=== PATIENT | female | born 1975 | race Caucasian/White ===

== ENCOUNTER 2022-04-18 20:01 | Outpatient (CLI) | payer OTHER, SELFPAY ==
[2022-04-18 22:01] LABS: Chloride* 107 mmol/L (96-114); Sodium* 137 mmol/L (135-149)
[2022-04-18 22:04] LABS: Blood Urea Nitrogen* 15 mg/dL (5-24); Carbon Dioxide* 23 mmol/L (20-32); Creatinine* 0.8 mg/dL (0.5-1.5); Estimated Glomerular Filt Rate 91 ml/min; Glucose* 110 mg/dL (60-115)
[2022-04-18 22:05] LABS: Calcium* 9.6 mg/dL (8.4-10.6)
== END 2022-04-18 20:02 | disposition home or self-care (01) ==
LOC: NFLDREF 20:02
PROVIDERS: PCP Family Medicine; Visit Provider Student in an Organized Health Care Education/Training Program
DX: R42 Dizziness and giddiness (principal)
CPT/HCPCS: 80048

== ENCOUNTER 2023-02-01 13:53 | Outpatient (CLI) | payer OTHER, SELFPAY | END 2023-02-01 13:54 | disposition home or self-care (01) | PROVIDERS: PCP Family Medicine; Visit Provider Family Medicine | DX: Z00.00 Encounter for general adult medical examination without abnormal findings (principal); E78.5 Hyperlipidemia, unspecified; I10 Essential (primary) hypertension; N91.2 Amenorrhea, unspecified; E13.9 Other specified diabetes mellitus without complications | CPT/HCPCS: 80061; 83001 ==

== ENCOUNTER 2023-03-15 13:32 | Outpatient (CLI) | payer OTHER, SELFPAY ==
--- NOTE | 2023-03-15 14:00 | CRLHL7_ITS ---
For Patients: As a result of the Cures Act, medical imaging exams and procedure reports are released immediately into your electronic medical record. You may view this report before your referring provider. If you have questions, please contact your health care provider. BILATERAL SCREENING MAMMOGRAM WITH COMPUTER-AIDED DETECTION AND TOMOSYNTHESIS TECHNIQUE: CC and MLO views were obtained. These mammographic images have been obtained using full-field digital technique. These mammographic images were interpreted with the benefit of computer-aided detection. Breast Tomosynthesis was used in this interpretation. COMPARISON FILM: 11/03/21, 05/07/21, 02/07/18. FINDINGS: There are scattered areas of fibroglandular density IMPRESSION: There is no radiographic evidence for malignancy. ASSESSMENT: BI-RADS Category 1: Negative RECOMMENDATION: Routine screening mammogram in 1 year. A lay language report of this examination will be provided to the patient. Gustavo Presley M.D. Diagnostic Radiologist [email or web address] Transcribed: 1:04 [email or web address] chu/Dictated by: Gustavo Presley MD @ 03/16/2023 12:42:00 PM (Electronically Signed)
== END 2023-03-15 13:33 | disposition home or self-care (01) ==
LOC: MAMMO 13:32
PROVIDERS: PCP Family Medicine; Visit Provider Family Medicine
DX: Z12.31 Encounter for screening mammogram for malignant neoplasm of breast (principal)
CPT/HCPCS: 77063; 77067

== ENCOUNTER 2023-11-01 09:31 | Outpatient (CLI) | payer OTHER, SELFPAY | END 2023-11-01 09:32 | disposition home or self-care (01) | PROVIDERS: PCP Family Medicine; Visit Provider Family Medicine | DX: E11.9 Type 2 diabetes mellitus without complications (principal); I10 Essential (primary) hypertension; E78.5 Hyperlipidemia, unspecified; Z13.29 Encounter for screening for other suspected endocrine disorder | CPT/HCPCS: 80048; 80061; 84443 ==

== ENCOUNTER 2024-02-02 12:56 | Outpatient (CLI) | payer OTHER, SELFPAY | END 2024-02-02 12:57 | disposition home or self-care (01) | LOC: NFLDREF 02-06 23:10 | PROVIDERS: PCP Family Medicine; Referring Provider Family Medicine; Visit Provider Family Medicine | DX: N30.00 Acute cystitis without hematuria (principal); B95.7 Other staphylococcus as the cause of diseases classified elsewhere | CPT/HCPCS: 87086; 87186 ==

== ENCOUNTER 2024-08-14 09:58 | Outpatient (CLI) | payer OTHER, SELFPAY ==
--- NOTE | 2024-08-14 10:15 | CRLHL7_ITS ---
For Patients: As a result of the Century Cures Act, medical imaging exams and procedure reports are released immediately into your electronic medical record. You may view this report before your referring provider. If you have questions, please contact your health care provider. BILATERAL SCREENING MAMMOGRAM WITH COMPUTER-AIDED DETECTION AND TOMOSYNTHESIS TECHNIQUE: CC and MLO views were obtained. These mammographic images have been obtained using full-field digital technique. These mammographic images were interpreted with the benefit of computer-aided detection. Breast Tomosynthesis was used in this interpretation. COMPARISON FILM: 03/15/23, 11/03/21, 07/08/20. FINDINGS: There are scattered areas of fibroglandular density. IMPRESSION: There is no radiographic evidence for malignancy. ASSESSMENT: BI-RADS Category 1: Negative RECOMMENDATION: Routine screening mammogram in 1 year. A lay language report of this examination will be provided to the patient. Gustavo Presley M.D. Diagnostic Radiologist [email or web address] SP/Dictated by: Gustavo Presley MD @ 08/20/2024 11:30:00 AM (Electronically Signed)
== END 2024-08-14 09:59 | disposition home or self-care (01) ==
LOC: MAMMO 09:59
PROVIDERS: PCP Family Medicine; Visit Provider Family Medicine
DX: Z12.31 Encounter for screening mammogram for malignant neoplasm of breast (principal)
CPT/HCPCS: 77063; 77067

== ENCOUNTER 2025-05-07 10:21 | Outpatient (CLI) | payer OTHER, SELFPAY | END 2025-05-07 10:22 | disposition home or self-care (01) | PROVIDERS: PCP Family Medicine; Visit Provider Family Medicine | DX: E11.9 Type 2 diabetes mellitus without complications (principal); E78.00 Pure hypercholesterolemia, unspecified; N92.4 Excessive bleeding in the premenopausal period | CPT/HCPCS: 80048; 80061; 83001 ==